=== PATIENT | male | born 1985 | race Asian ===

== ENCOUNTER → 2016-03-14 | Outpatient (CLI) | payer OTHER | END | disposition home or self-care (01) | LOC: C.LAB1850 09:36 → EDSTATUS 03-19 12:13 | PROVIDERS: ATTEND Emergency Medicine | DX: T14.8 Other injury of unspecified body region (principal); W46.1XXA Contact with contaminated hypodermic needle, initial encounter ==

== ENCOUNTER → 2016-05-15 | Outpatient (CLI) | payer OTHER | END | disposition home or self-care (01) | LOC: C.LAB1850 11:07 → EDSTATUS 05-18 09:58 | PROVIDERS: ATTEND Nurse Practitioner Adult Health | DX: T14.8 Other injury of unspecified body region (principal); W46.1XXA Contact with contaminated hypodermic needle, initial encounter ==

== ENCOUNTER → 2016-08-02 | Outpatient (CLI) | payer OTHER | END | disposition home or self-care (01) | LOC: C.LAB1850 11:03 → EDSTATUS 08-03 10:27 | PROVIDERS: ATTEND Physician Assistant | DX: W46.0XXA Contact with hypodermic needle, initial encounter (principal) ==

== ENCOUNTER → 2016-11-09 | Outpatient (CLI) | payer BC ==
[2016-11-12 14:47] LABS: QUANTIF TB AG-NIL 0.04 IU/ML; QUANTIFERON NIL 0.15 IU/ML
== END | disposition home or self-care (01) ==
LOC: C.LAB1850 14:04
PROVIDERS: ATTEND Family Medicine
DX: Z11.1 Encounter for screening for respiratory tuberculosis (principal)